=== PATIENT | female | born 1950 | race Caucasian/White ===

== ENCOUNTER 2021-12-14 13:16 | Emergency (ER) | payer MEDICARE ==
[~2021-12-14] VITALS: Ht 162.6 cm; Wt 92.3 kg
--- NOTE | 2021-12-14 13:40 | PHYS DOC ---
General Adult EDM: Chief Complaint: SHORTNESS OF BREATH HPI: HPI: 71-year-old female presents with shortness of breath. She was feeling normal until the smells are at smoke came through her apartment ventilation system. The patient is very sensitive to cigarette smoke. She tried a couple albuterol breathing treatments but is still feeling a bit short of breath. She decided she should come the emergency room for evaluation. The patient uses albuterol on an as-needed basis. She has used inhaled steroids in the past but does not use them regularly. She denies chest pain or diaphoresis. She has no other specific complaints at this time. Review of Systems: Review of Systems: Constitutional: Denies fever or chills Eyes: Denies change in visual acuity HENT: Denies nasal congestion or sore throat Respiratory: shortness of breath Cardiovascular: Denies chest pain or edema GI: Denies abdominal pain, nausea, vomiting, bloody stools or diarrhea : Denies dysuria Musculoskeletal: Denies back pain or joint pain Integument: Denies rash Neurologic: Denies headache, focal weakness or sensory changes Endocrine: Denies polyuria or polydipsia Lymphatic: Denies swollen glands Psychiatric: Denies depression or anxiety Allergies: Allergies: Allergies Coded Allergies Type Severity Reaction Last Updated Verified Penicillins Allergy Unknown 12/14/21 Yes Physical Exam: PE: Constitutional: Well developed, well nourished, morbidly obese, no acute distress, non-toxic appearance. [] HENT: Normocephalic, atraumatic, bilateral external ears normal, oropharynx moist, no oral exudates, nose normal. [] Eyes: PERRLA, EOMI, conjunctiva normal, no discharge. [] Neck: Normal range of motion, no tenderness, supple, no stridor. [] Cardiovascular: Heart rate 104, regular rhythm, no murmur [] Lungs & Thorax: Bilateral breath sounds clear to auscultation [] Abdomen: Bowel sounds normal, soft, no tenderness, no masses, no pulsatile masses. [] Skin: Warm, dry, no erythema, no rash. [] Back: No tenderness, no CVA tenderness. [] Extremities: No tenderness, no cyanosis, no clubbing, ROM intact, no edema. [] Neurologic: Alert and oriented X 3, normal motor function, normal sensory function, no focal deficits noted. [] Psychologic: Affect normal, judgement normal, mood anxious. [] EKG: EKG: Sinus rhythm, rate 93, leftward axis, no ST elevation or depression [] Radiology/Procedures: Radiology/Procedures: [] Impressions: XR CHEST 1V History: Reason: SHORTNESS OF BREATH / Spl. Instructions: / History: Comparison: None. Findings: No consolidation or pleural effusion. Normal heart size. No pneumothorax. Postop changes lower thoracic and upper lumbar spine partially imaged. Impression: 1. No acute cardiopulmonary process. Electronically signed by: Rody Chambers DO (12/14/2021 2:51 PM) [id number] DICTATED AND SIGNED BY: RODY CHAMBERS DO DATE: 12/14/21 1449 CC: FLORES LAYNE DO; EMERITA KUO MD ~MTH0 0 Heart Score: C/O Chest Pain: N/A Risk Factors: Risk Factors: DM, Current or recent (<one month) smoker, HTN, HLP, family history of CAD, obesity. Risk Scores: Score 0 - 3: 2.5% MACE over next 6 weeks - Discharge Home Score 4 - 6: 20.3% MACE over next 6 weeks - Admit for Clinical Observation Score 7 - 10: 72.7% MACE over next 6 weeks - Early Invasive Strategies Course & Med Decision Making: Course & Med Decision Making Pertinent Labs and Imaging studies reviewed. (See chart for details) The patient's EKG is unremarkable. Chest x-ray is negative for acute findings. Labs are unremarkable. The patient was given a DuoNeb treatment. The patient feels better. She feels like she can go home. I will prescribe her a Combivent Respimat inhaler. She is stable for discharge at this time. [] Dragon Disclaimer: Dragon Disclaimer: This electronic medical record was generated, in whole or in part, using a voice recognition dictation system. Departure Departure: Impression: Primary Impression: SOB (shortness of breath) Disposition: 01 HOME / SELF CARE / HOMELESS Condition: IMPROVED Referrals: EMERITA KUO MD (PCP) Patient Instructions: Shortness of Breath, [id number] Scripts Ipratropium/Albuterol Sulfate (COMBIVENT RESPIMAT INHAL) 4 Gm Aer.w.adap 1 PUFF INH Q6HRS PRN for WHEEZING, #1 EACH Prov: FLORES LAYNE DO 12/14/21 FLORES LAYNE DO Dec 14, 2021 13:40
[2021-12-14] MEDS ORDERED: IPRATRPIUM/ALBUTEROL 0.5/2.5MG 3 ML NEBU. NEB ONE (13:45)
[2021-12-14 14:52] LABS: BASO # 0.1 x10^3/uL (0.0-0.2); BASO % 2 % (0-3); EOS # 0.1 x10^3/uL (0.0-0.7); EOS % 1 % (0-3); HEMATOCRIT 42.9 % (36.0-47.0); HEMOGLOBIN 13.9 g/dL (12.0-15.5); LYMPH % 22 % (24-48); MEAN CORPUSCULAR HEMOGLOBIN 29 pg (25-35); MEAN CORPUSCULAR HGB CONC 32 g/dL (31-37); MEAN CORPUSCULAR VOLUME 89 fL (79-100); MONO # 0.7 x10^3/uL (0.0-1.1); MONO % 7 % (0-9); NEUT % 68 % (31-73); PLATELET COUNT 391 x10^3/uL (140-400); RED BLOOD COUNT 4.81 x10^6/uL (3.50-5.40); RED CELL DISTRIBUTION WIDTH 14.9 % (11.5-14.5); WHITE BLOOD COUNT 8.9 x10^3/uL (4.0-11.0)
--- NOTE | 2021-12-14 14:54 | RAD ---
XR CHEST 1V History: Reason: SHORTNESS OF BREATH / Spl. Instructions: / History: Comparison: None. Findings: No consolidation or pleural effusion. Normal heart size. No pneumothorax. Postop changes lower thorac ic and upper lumbar spine partially imaged. Impression: 1. No acute cardiopulmonary process. Electronically signed by: Marcelo Arias DO (12/14/2021 2:51 PM) [id number]
[2021-12-14 14:56] VITALS: BP 144/65
[2021-12-14 14:57] LABS: CALCIUM 9.1 mg/dL (8.5-10.1); GFR 54.3; POTASSIUM 3.6 mmol/L (3.5-5.1)
[2021-12-14 15:03] LABS: ALBUMIN 3.9 g/dL (3.4-5.0); ALBUMIN/GLOBULIN RATIO 1.1 (1.0-1.7); TOTAL BILIRUBIN 0.4 mg/dL (0.2-1.0); TOTAL PROTEIN 7.3 g/dL (6.4-8.2)
[2021-12-14] MEDS ORDERED: IPRA4AER INH (15:15)
--- NOTE | 2021-12-14 23:18 | EKG ---
[address] [address] Test Date: 2021-12-14 Test Time: 13:48:56 Pat Name: MARIELY DOE Department: Room: Gender: F [employer]: GENE : [id number] Requested By: FLORES LAYNE Order Number: [id number] Reading MD: Measurements Intervals [place] Rate: 93 P: 39 ME: 138 QRS: -11 QRSD: 70 T: 64 QT: 342 QTc: 428 Interpretive Statements SINUS RHYTHM LEFTWARD AXIS NO SPECIFIC ECG ABNORMALITIES RI6.01 No previous ECG available for comparison
== END 2021-12-14 15:22 | disposition home or self-care (01) ==
LOC: ER 13:16
DX: R06.02 Shortness of breath (principal); Z88.0 Allergy status to penicillin
CPT/HCPCS: 36415; 71045; 80053; 84484; 85025; 93005; 94640; 99285